=== PATIENT | male | born 1970 | race Caucasian/White ===

== ENCOUNTER → 2017-11-24 | Outpatient (CLI) | payer BC ==
[2017-11-24 16:36] LABS: Anion Gap 10 mmol/L; Blood Urea Nitrogen 17 mg/dL (9-20); Carbon Dioxide 27 mmol/L (22-30); Chloride 105 mmol/L (98-107); Potassium 4.4 mmol/L (3.5-5.1); Sodium 142 mmol/L (137-145)
[2017-11-25 02:29] LABS: Hemoglobin A1C 5.6 % (4.0-6.0)
== END | disposition home or self-care (01) ==
LOC: LABWHC1 15:43
PROVIDERS: ATTEND Family Medicine
DX: I10 Essential (primary) hypertension (principal); Z79.899 Other long term (current) drug therapy
CPT/HCPCS: 36415; 80051; 82565; 83036; 84443; 84520

== ENCOUNTER → 2018-09-17 | Outpatient (CLI) | payer BC | END | disposition home or self-care (01) | LOC: LABWHC1 16:25 | PROVIDERS: ATTEND Family Medicine | DX: Z51.81 Encounter for therapeutic drug level monitoring (principal); Z79.899 Other long term (current) drug therapy | CPT/HCPCS: 36415; 84403; 84443 ==

== ENCOUNTER → 2019-06-19 | Outpatient (CLI) | payer BC ==
[2019-06-19 10:49] LABS: HGB 16.7 gm/dL (13.0-17.5); MCH 31.7 pg (25.0-35.0); MCHC 34.2 g/dL (31.0-37.0); MCV 92.6 fL (80.0-100.0); Mean Platelet Volume 6.6; Platelet Count 275 k/uL (150-450); RBC 5.29 m/uL (4.30-5.90); RDW 12.2 % (11.5-15.5)
[2019-06-19 18:11] LABS: African American GFR (CKD) 92.2 (60.0-200.0); Albumin 4.5 g/dL (3.80-4.90); Albumin/Globulin Ratio 1.55 (1.60-3.17); Anion Gap 7.5 mmol/L (4.00-12.00); BUN/Creat Ratio 16.36 Ratio (12.00-20.00); Calcium 9.4 mg/dL (8.7-10.3); Carbon Dioxide 26.5 mmol/L (21.6-31.8); Chol/HDL Ratio 5.27; Globulin 2.9 g/dL (1.6-3.3); LDL Cholesterol,Calculated 111.6 mg/dL (0.0-131.0); Non-African American GFR(CKD) 79.5 (60.0-200.0); Total Bilirubin 0.6 mg/dL (0.3-1.2); Total Protein 7.4 g/dL (6.2-8.2); VLDL Calculation 46.4 mg/dL (5.00-40.00)
[2019-06-19 18:37] LABS: Hemoglobin A1C 6.3 % (4.0-6.0)
== END | disposition home or self-care (01) ==
LOC: LABWHC1 10:17
PROVIDERS: ATTEND Family Medicine
DX: Z00.00 Encounter for general adult medical examination without abnormal findings (principal); I10 Essential (primary) hypertension; B89 Unspecified parasitic disease
CPT/HCPCS: 36415; 80053; 80061; 83036; 84403; 84443; 85027

== ENCOUNTER → 2020-03-06 | Outpatient (CLI) | payer BC ==
[2020-03-06 16:44] LABS: HCT 48.9 % (39.0-53.0); HGB 16.7 gm/dL (13.0-17.5); MCH 32.6 pg (25.0-35.0); MCHC 34.2 g/dL (31.0-37.0); MCV 95.4 fL (80.0-100.0); Mean Platelet Volume 6.6; Platelet Count 254 k/uL (150-450); RBC 5.13 m/uL (4.30-5.90)
[2020-03-07 03:24] LABS: African American GFR (CKD) 102.7 (60.0-200.0); Albumin 4.4 g/dL (3.80-4.90); Albumin/Globulin Ratio 1.42 (1.60-3.17); Anion Gap 9.7 mmol/L (4.00-12.00); Calcium 9.6 mg/dL (8.7-10.3); Carbon Dioxide 23.3 mmol/L (21.6-31.8); Chol/HDL Ratio 5.62; Globulin 3.1 g/dL (1.6-3.3); LDL Cholesterol,Calculated 81.2 mg/dL (0.0-131.0); Non-African American GFR(CKD) 88.6 (60.0-200.0); Potassium 4.2 mmol/L (3.5-5.5); Total Bilirubin 0.3 mg/dL (0.2-1.2); Total Protein 7.5 g/dL (6.2-8.2); VLDL Calculation 75.8 mg/dL (5.00-40.00)
[2020-03-07 04:03] LABS: Hemoglobin A1C 5.8 % (4.0-6.0)
== END | disposition home or self-care (01) ==
LOC: LABWHC1 16:17
PROVIDERS: ATTEND Family Medicine
DX: I10 Essential (primary) hypertension (principal); E11.9 Type 2 diabetes mellitus without complications
CPT/HCPCS: 36415; 80053; 80061; 83036; 84403; 84443; 85027

== ENCOUNTER 2022-08-01 08:09 | Day surgery (SDC) | payer BC ==
[2022-07-26 15:06] VITALS: BMI 36.9
[~2022-08-01 08:09] MED LIST: LACTATED RINGERS 1,000 ML IV SCH; LIDOCAINE 1% (10MG/ML) FOR IV START INTRADERMA PRN
[2022-08-01 08:30] VITALS: TEMP 96
--- NOTE | 2022-08-01 09:12 | P.GSHP ---
History of Present Illness H&P Date: 08/01/22 Chief Complaint: Diarrhea This a 51-year-old male who's had complaints of diarrhea. Patient resents today for colonoscopy. Past Medical History Past Medical History: GERD/Reflux, Hypertension, Osteoarthritis (OA) Additional Past Medical History / Comment(s): occ vertigo History of Any Multi-Drug Resistant Organisms: None Reported Past Surgical History: Orthopedic Surgery Additional Past Surgical History / Comment(s): b/l arthroscopic knee surgery Past Anesthesia/Blood Transfusion Reactions: No Reported Reaction, Motion Sickness Past Psychological History: Anxiety Additional Psychological History / Comment(s): reports feeling over emotional at times Smoking Status: Former smoker Past Drug Use History: None Reported Additional Drug Use History / Comment(s): 1 ppd Medications and Allergies Home Medications Medication Instructions Recorded Confirmed Type FLUoxetine HCL [PROzac] 10 mg PO DAILY 07/26/22 08/01/22 History Ibuprofen [Motrin] 800 mg PO BID PRN 07/26/22 08/01/22 History Losartan Potassium 100 mg PO DAILY 07/26/22 08/01/22 History Sildenafil Citrate [Viagra] 25 mg PO DAILY PRN 07/26/22 08/01/22 History oxyCODONE-APAP 7.5-325MG [Percocet 1 tab PO BID PRN 07/26/22 08/01/22 History 7.5-325 mg] Allergies Allergy/AdvReac Type Severity Reaction Status Date / Time No Known Allergies Allergy Verified 08/01/22 08:34 Surgical - Exam Vital Signs Temp Pulse Resp BP Pulse Ox 96 F L 84 20 154/85 96 08/01/22 08:25 08/01/22 08:25 08/01/22 08:25 08/01/22 08:25 08/01/22 08:25 - General well developed, well nourished, no distress - Eyes PERRL - ENT normal pinna - Neck no masses - Respiratory normal expansion - Cardiovascular Rhythm: regular - Abdomen Abdomen: soft, non tender Assessment and Plan Assessment: Diarrhea. We'll perform colonoscopy
[2022-08-01] MEDS ORDERED: LIDOCAINE 2% INJ 20 MG/ML (2 ML VIAL) ONE (09:13)
[2022-08-01] MEDS ORDERED: PROPOFOL 10 MG/ML 20 ML VIAL IV ONE (09:13)
--- NOTE | 2022-08-01 09:28 | P.OP ---
Date of Procedure: 08/01/22 Preoperative Diagnosis: Diarrhea Postoperative Diagnosis: Mild diverticulosis Procedure(s) Performed: Colonoscopy Anesthesia: MAC Surgeon: Eleuterio Goldsmith Pathology: other (Sigmoid) Condition: stable Disposition: PACU Description of Procedure: The patient's placed on the endoscopy table in the lateral position. Received IV sedation. Digital rectal exam was performed. This revealed no ebonized. The flexible colonoscope was then placed patient anus and passed throughout the entire colon. The ileocecal valve visualized. The cecum, ascending and transverse colon appeared normal. In the descending; was mild diverticular changes. Scope a random biopsies sigmoid colon was performed. The scope was brought back the rectum this appeared normal. Scope withdrawn for the anus. There was no significant inflammatory changes seen in the colon.
[2022-08-01 09:34] VITALS: RESP 16
[2022-08-01 09:57] VITALS: BP 127/62; PULSE 68
== END 2022-08-01 10:03 | disposition home or self-care (01) ==
LOC: ORWHC2ENDO 08:09
PROVIDERS: ATTEND Surgery
DX: K57.30 Diverticulosis of large intestine without perforation or abscess without bleeding (principal); I10 Essential (primary) hypertension; M19.90 Unspecified osteoarthritis, unspecified site; K21.9 Gastro-esophageal reflux disease without esophagitis; E66.9 Obesity, unspecified; Z68.37 Body mass index [BMI] 37.0-37.9, adult; Z86.69 Personal history of other diseases of the nervous system and sense organs; Z98.890 Other specified postprocedural states; F41.9 Anxiety disorder, unspecified; Z87.891 Personal history of nicotine dependence; Z79.1 Long term (current) use of non-steroidal anti-inflammatories (NSAID); Z79.899 Other long term (current) drug therapy
CPT/HCPCS: 88305; 45380; J2704; J2001

== ENCOUNTER → 2022-08-01 | Outpatient (CLI) | payer BC ==
[2022-08-01 14:57] LABS: Basophils # (A) 0.04 X 10*3/uL (0.00-0.10); Basophils % (A) 0.9 %; Eosinophils # (A) 0.08 X 10*3/uL (0.04-0.35); Eosinophils % (A) 1.9 %; HGB 16.5 g/dL (13.0-17.0); Immature Grans, Automated 0.5 %; Lymphocytes # (A) 1.51 X 10*3/uL (0.90-5.00); Lymphocytes % (A) 35.7 %; MCH 32.7 pg (27.0-32.0); MCHC 34.4 g/dL (32.0-37.0); Mean Platelet Volume 9.8 fL (9.5-12.2); Monocytes # (A) 0.41 X 10*3/uL (0.20-1.00); Monocytes % (A) 9.7 %; NRBC Per 100 WBC 0 /100 WBCS (0.0-0.0); Neutrophils # (A) 2.17 X 10*3/uL (1.80-7.70); Neutrophils % (A) 51.3 %; Platelet Count 263 X 10*3/uL (140-440); RBC 5.05 X 10*6/uL (4.40-5.60); RDW 12.4 % (11.5-14.5); WBC 4.23 X 10*3/uL (4.50-10.00)
[2022-08-01 16:17] LABS: ALT 98 U/L (10-49); AST 50 U/L (14-35); African American GFR (CKD) 94.4 (60.0-200.0); Albumin 4.4 g/dL (3.8-4.9); Albumin/Globulin Ratio 1.45 (1.60-3.17); Alkaline Phosphatase 66 U/L (41-126); BUN/Creat Ratio 12.45 Ratio (12.00-20.00); Blood Urea Nitrogen 13.2 mg/dL (9.0-27.0); Calcium 9.6 mg/dL (8.7-10.3); Carbon Dioxide 29.7 mmol/L (20.0-27.5); Chloride 99 mmol/L (96-109); Chol/HDL Ratio 5.88 Ratio; Glucose 195 mg/dL (70-110); LDL Cholesterol,Calculated 119.6 mg/dL (0.0-131.0); Non-African American GFR(CKD) 81.4 (60.0-200.0); Potassium 4.3 mmol/L (3.5-5.5); Sodium 137 mmol/L (135-145); Total Protein 7.4 g/dL (6.2-8.2)
== END | disposition home or self-care (01) ==
LOC: LABWHC1 10:18
PROVIDERS: ATTEND Family Medicine
DX: Z00.00 Encounter for general adult medical examination without abnormal findings (principal); I10 Essential (primary) hypertension; Z79.899 Other long term (current) drug therapy
CPT/HCPCS: 36415; 80053; 80061; 83036; 84153; 84403; 84443; 85025

== ENCOUNTER → 2023-03-01 | Outpatient (CLI) | payer BC ==
[2023-03-01 13:47] LABS: HCT 46.7 % (39.6-50.0); HGB 15.8 d/dL (13.0-17.0); MCH 33.3 pg (27.0-32.0); MCHC 33.8 d/dL (32.0-37.0); MCV 98.5 FL (80.0-97.0); Mean Platelet Volume 9.2 FL (9.5-12.2); NRBC Per 100 WBC 0 X 10*3/uL (0.00-0.01); Platelet Count 256 X 10*3/uL (140-440); RBC 4.74 X 10*6/uL (4.40-5.60); RDW 12.7 % (11.5-14.5); WBC 4.09 X 10*3/uL (4.50-10.00)
[2023-03-01 14:11] LABS: ALT 75 U/L (10-49); AST 43 U/L (14-35); Albumin 4.2 d/dL (3.8-4.9); Albumin/Globulin Ratio 1.35 Ratio (1.60-3.17); Alkaline Phosphatase 65 U/L (41-126); BUN/Creat Ratio 13.45 Ratio (12.00-20.00); Blood Urea Nitrogen 14.8 mg/dL (9.0-27.0); Calcium 9.5 mg/dL (8.7-10.3); Carbon Dioxide 27.5 mmol/L (21.6-31.8); Chloride 99 mmol/L (96-109); Chol/HDL Ratio 4.14 Ratio; Globulin 3.1 d/dL (1.6-3.3); Glucose 185 mg/dL (70-110); LDL Cholesterol,Calculated 76.5 mg/dL (0.0-131.0); Potassium 4.1 mmol/L (3.5-5.5); Sodium 137 mmol/L (135-145); Total Bilirubin 0.4 mg/dL (0.3-1.2); Total Protein 7.3 d/dL (6.2-8.2)
== END | disposition home or self-care (01) ==
LOC: LABWHC1 08:43
PROVIDERS: ATTEND Family Medicine
DX: Z00.00 Encounter for general adult medical examination without abnormal findings (principal)
CPT/HCPCS: 36415; 80053; 80061; 82043; 82570; 83036; 84443; 85027

== ENCOUNTER → 2023-11-15 | Outpatient (CLI) | payer BC ==
[2023-11-15 12:39] LABS: Basophils # (A) 0.05 X 10*3/uL (0.00-0.10); Basophils % (A) 1.1 %; Eosinophils # (A) 0.13 X 10*3/uL (0.04-0.35); Eosinophils % (A) 2.9 %; HCT 44.6 % (39.6-50.0); HGB 15.7 g/dL (13.0-17.0); Lymphocytes # (A) 1.84 X 10*3/uL (0.90-5.00); Lymphocytes % (A) 40.4 %; MCH 32.2 pg (27.0-32.0); MCHC 35.2 g/dL (32.0-37.0); MCV 91.4 FL (80.0-97.0); Mean Platelet Volume 9.8 FL (9.5-12.2); Monocytes # (A) 0.42 X 10*3/uL (0.20-1.00); Monocytes % (A) 9.2 %; NRBC Per 100 WBC 0 X 10*3/uL (0.00-0.01); Neutrophils # (A) 2.11 X 10*3/uL (1.80-7.70); Neutrophils % (A) 46.2 %; Platelet Count 218 X 10*3/uL (140-440); RBC 4.88 X 10*6/uL (4.40-5.60); RDW 12.4 % (11.5-14.5); WBC 4.56 X 10*3/uL (4.50-10.00)
[2023-11-15 14:38] LABS: Microalbumin Creatinine Ratio <6 mg/g Cr (0-30)
[2023-11-15 15:15] LABS: ALT 75 U/L (10-49); AST 48 U/L (14-35); Albumin 4.2 g/dL (3.8-4.9); Alkaline Phosphatase 67 U/L (41-126); BUN/Creat Ratio 17.67 Ratio (12.00-20.00); Blood Urea Nitrogen 15.9 mg/dL (9.0-27.0); Carbon Dioxide 24.6 mmol/L (21.6-31.8); Chloride 98 mmol/L (96-109); Chol/HDL Ratio 4.27 Ratio; Glucose 224 mg/dL (70-110); LDL Cholesterol,Calculated 78.8 mg/dL (0.0-131.0); Potassium 3.6 mmol/L (3.5-5.5); Prostate Specific Antigen 0.62 ng/mL (0.000-3.500); Sodium 136 mmol/L (135-145); Total Bilirubin 0.5 mg/dL (0.3-1.2); Total Protein 7.2 g/dL (6.2-8.2)
== END | disposition home or self-care (01) ==
LOC: LABWHC1 07:34
PROVIDERS: ATTEND Family Medicine
DX: Z00.00 Encounter for general adult medical examination without abnormal findings (principal); E11.9 Type 2 diabetes mellitus without complications; I10 Essential (primary) hypertension; E78.49 Other hyperlipidemia
CPT/HCPCS: 36415; 80053; 80061; 82043; 82570; 83036; 84153; 84443; 85025

== ENCOUNTER 2024-08-05 11:10 | Inpatient (IN) | payer BC ==
[2024-08-05] MEDS ORDERED: NITROGLYCERIN SL TABS 0.4 MG TAB SUBLINGUAL PRN ×2 (11:24→11:34)
--- NOTE | 2024-08-05 11:30 | ED ---
General Adult HPI - General Chief complaint: Recheck/Abnormal Lab/Rx Stated complaint: Chest pain Time Seen by Provider: 08/05/24 11:12 Source: patient, RN/MD, RN notes reviewed Mode of arrival: wheelchair Limitations: no limitations - History of Present Illness Initial comments: Patient is a 53-year-old male present to the emergency department with concerns of chest discomfort. Symptoms have been occurring for the past several months. Patient specifically has discomfort with exertion and shoveling. No symptoms at this time. Patient did see cardiology and had stress test done today. Dr. Fierro called with concerns for abnormal stress test. He would like patient to be admitted with heparin and echo. - Related Data Home Medications Medication Instructions Recorded Confirmed FLUoxetine HCL [PROzac] 10 mg PO DAILY 07/26/22 08/01/22 Ibuprofen [Motrin] 800 mg PO BID PRN 07/26/22 08/01/22 Losartan Potassium 100 mg PO DAILY 07/26/22 08/01/22 Sildenafil Citrate [Viagra] 25 mg PO DAILY PRN 07/26/22 08/01/22 oxyCODONE-APAP 7.5-325MG [Percocet 1 tab PO BID PRN 07/26/22 08/01/22 7.5-325 mg] Allergies Allergy/AdvReac Type Severity Reaction Status Date / Time No Known Allergies Allergy Verified 08/05/24 11:14 Review of Systems ROS Statement: Those systems with pertinent positive or pertinent negative responses have been documented in the HPI. ROS Other: All systems not noted in ROS Statement are negative. Constitutional: Denies: fever Eyes: Denies: eye pain Cardiovascular: Reports: as per HPI, chest pain Gastrointestinal: Denies: abdominal pain Musculoskeletal: Denies: back pain Past Medical History Past Medical History: GERD/Reflux, Hypertension, Osteoarthritis (OA) Additional Past Medical History / Comment(s): occ vertigo History of Any Multi-Drug Resistant Organisms: None Reported Past Surgical History: Orthopedic Surgery Additional Past Surgical History / Comment(s): b/l arthroscopic knee surgery Past Anesthesia/Blood Transfusion Reactions: No Reported Reaction, Motion Sickness Past Psychological History: Anxiety Smoking Status: Former smoker Past Alcohol Use History: Occasional Past Drug Use History: None Reported General Exam Limitations: no limitations General appearance: alert, in no apparent distress Head exam: Present: normocephalic Eye exam: Present: normal appearance Neck exam: Present: normal inspection Respiratory exam: Present: normal lung sounds bilaterally. Absent: chest wall tenderness Cardiovascular Exam: Present: regular rate, normal rhythm, normal heart sounds Expanded Peripheral pulses: 2+: Radial (R), Radial (L), Posterior Tibialis (R), Posterior Tibialis (L) GI/Abdominal exam: Present: soft. Absent: tenderness, pulsatile mass Extremities exam: Present: normal inspection. Absent: pedal edema, calf tenderness Neurological exam: Present: alert Psychiatric exam: Present: normal affect, normal mood Skin exam: Present: normal color Course Vital Signs 08/05/24 11:12 Temperature 98.8 F Pulse Rate 84 Respiratory 18 Rate Blood Pressure 131/87 O2 Sat by Pulse 97 Oximetry EKG Findings - EKG Results: EKG: interpreted by ERMD (Inferior T wave inversion), sinus rhythm, normal axis, normal QRS Medical Decision Making - Medical Decision Making Was pt. sent in by a medical professional or institution (, PA, EPIDEMIOLOGY INVESTIGATOR, urgent care, hospital, or [facility]...) When possible be specific @ -Patient was sent from stress lab Did you speak to anyone other than the patient for history (EMS, parent, family, police, friend...)? What history was obtained from this source @ -See above, case was discussed with Dr. Fierro Did you review nursing and triage notes (agree or disagree)? Why? @ -I reviewed and agree with nursing and triage notes Were old charts reviewed (outside hosp., previous admission, EMS record, old EKG, old radiological studies, urgent care reports/EKG's, [facility] records)? Report findings @ -Results of stress test discussed with Dr. Fierro Differential Diagnosis (chest pain, altered mental status, abdominal pain women, abdominal pain men, vaginal bleeding, weakness, fever, dyspnea, syncope, hea dache, dizziness, GI bleed, back pain, seizure, CVA, palpatations, mental health, musculoskeletal)? @ -Differential Chest Pain: Stable Angina, Unstable Angina, STEMI, NSTEMI Aortic Dissection, Pneumothorax, Musculoskeletal, Esophageal Spasm GERD, Cholecystitis, Pancreatitis, Zoster, this is not meant to be an all-inclusive list. EKG interpreted by me (3pts min.). @ -As above X-rays interpreted by me (1pt min.). @ -None done CT interpreted by me (1pt min.). @ -None done U/S interpreted by me (1pt. min.). @ -None done What testing was considered but not performed or refused? (CT, X-rays, U/S, labs)? Why? @ -None What meds were considered but not given or refused? Why? @ -None Did you discuss the management of the patient with other professionals (professionals i.e. DrLino, PA, EPIDEMIOLOGY INVESTIGATOR, lab, RT, psych nurse, social work therapist, brand director, teacher, navy airspace officer, case work aide)? Give summary @ -Case also discussed with Dr. Waller who will admit his patient Was smoking cessation discussed for >3mins.? @ -No Was critical care preformed (if so, how long)? @ -31 minutes critical care time Were there social determinants of health that impacted care today? How? (Homelessness, low income, unemployed, alcoholism, drug addiction, transportation, low edu. Level, literacy, decrease access to med. care, fdc, rehab)? @ -No Was there de-escalation of care discussed even if they declined (Discuss DNR or withdrawal of care, Hospice)? DNR status @ -No What co-morbidities impacted this encounter? (DM, HTN, Smoking, COPD, CAD, Cancer, CVA, ARF, Chemo, Hep., AIDS, mental health diagnosis, sleep apnea, morbid obesity)? @ -None Was patient admitted / discharged? Hospital course, mention meds given and route, prescriptions, significant lab abnormalities, going to OR and other pertinent info. @ -Patient presents with exertional chest pain for several months. Abnormal stress test. Patient will be admitted with cardiac consult. Patient is updated on plan. Admission orders written. Undiagnosed new problem with uncertain prognosis? @ -No Drug Therapy requiring intensive monitoring for toxicity (Heparin, Nitro, Insulin, Cardizem)? @ -Heparin drip Were any procedures done? @ -No Diagnosis/symptom? @ -Unstable angina Acute, or Chronic, or Acute on Chronic? @ -Acute Uncomplicated (without systemic symptoms) or Complicated (systemic symptoms)? @ -Default Side effects of treatment? @ -No Exacerbation, Progression, or Severe Exacerbation? @ -No Poses a threat to life or bodily function? How? (Chest pain, [place], GA, pneumonia, PE, COPD, DKA, ARF, appy, cholecystitis, CVA, Diverticulitis, Homicidal, Suicidal, threat to staff... and all critical care pts) @ -Threat to cardiac function Disposition Clinical Impression: Unstable angina Disposition: ADMITTED IP TO THIS HOSP Is patient prescribed a controlled substance at d/c from ED?: No Referrals: Josue Waller MD [Primary Care Provider] - 1-2 days Decision Date: 08/05/24 Decision Time: 11:27
[2024-08-05] MEDS ORDERED: ALPRAZolam 0.25 MG TAB PO PRN (11:34)
[2024-08-05] MEDS ORDERED: ALPRAZolam 0.5 MG TAB PO PRN (11:34)
[2024-08-05] MEDS: ASPIRIN 81 MG PO STA (11:52)
[2024-08-05] MEDS: ISOSORBIDE MONONITRATE ER 30 MG TAB.ER.24H PO SCH (11:53)
[2024-08-05] MEDS: METOPROLOL TARTRATE 25 MG TAB PO SCH (11:53)
--- NOTE | 2024-08-05 11:54 | XR ---
EXAMINATION TYPE: XR chest 2V DATE OF EXAM: 08/05/2024 11:38 AM COMPARISON: None CLINICAL INDICATION: Male, 53 years old with history of Chest Pain; [facility] TECHNIQUE: XR chest 2V Frontal and lateral views of the chest. FINDINGS: Lungs/Pleura: There is no evidence of pleural effusion, focal consolidation, or pneumothorax. Pulmonary vascularity: Unremarkable. Heart/mediastinum: Cardiomediastinal silhouette is unremarkable. Musculoskeletal: No acute osseous pathology. Other findings: None IMPRESSION: No acute cardiopulmonary disease/process. [facility], , 08/05/2024 11:52 AM
--- NOTE | 2024-08-05 11:56 | P.CRDCN ---
History of Present Illness Consult date: 08/05/24 Reason for Consult (text): Unstable angina History of present illness: This is a 53-year-old male with past medical history of hypertension, hyperlipidemia, diabetes mellitus type 2. Patient was scheduled for outpatient exercise stress test because he had chest pain while he was shoveling snow. He also was scheduled for an outpatient echocardiogram. Patient performed the exercise stress test and went into SVT rhythm at [address] depression that persisted. Patient did not have chest pain during the test. Dr. ROOSEVELT Fierro reviewed the results with the patient and recommended cardiac catheterization. Patient was taken down to the emergency center to be admitted. Laboratory studies are pending. -EKG: Sinus rhythm with ST depression -Chest x-ray: No acute cardiopulmonary disease. -Home cardiac medications: Losartan, metoprolol, atorvastatin -Echocardiogram performed 08/05/2024 reveals normal LV size and systolic function. No significant abnormality on Doppler exam. No pericardial effusion. Review Of Systems: At the time of my exam: CONSTITUTIONAL: Denies fever or chills. HEENT: Denies blurred vision, vision changes, or eye pain. Denies hemoptysis CARDIOVASCULAR: Denies chest pain. Denies orthopnea. Denies PND. Denies palpitations RESPIRATORY: Denies shortness of breath. GASTROINTESTINAL: Denies abdominal pain. Denies nausea or vomiting. HEMATOLOGIC: Denies bleeding disorders. GENITOURINARY: Denies any blood in urine. SKIN: Denies puritis. Denies rash. Physical examination: Gen: This is a 53-year-old male in no acute distress. VS: reviewed HEENT: Head is atraumatic, normocephalic. Pupils equal, round. Sclerae is anicteric. NECK: Supple. No JVD. LUNGS: Clear to auscultation. No wheezes or rhonchi. No intercostal retractions. HEART: Regular rate and rhythm. No murmur. ABDOMEN: Soft No tenderness. EXTREMITIES: No pedal edema. No calf tenderness. NEUROLOGICAL: Patient is awake, alert and oriented x3. Assessment: Unstable angina Abnormal stress test Hypertension Hyperlipidemia Diabetes mellitus type 2 Plan: Patient started on aspirin 81 mg daily, atorvastatin 40 mg at bedtime, Imdur 30 mg daily, Lopressor 25 mg 3 times daily Patient started on heparin drip and discontinue at 6 AM on 3/21 Patient is scheduled for cardiac catheterization tomorrow morning with Dr. ROOSEVELT Fierro Further recommendations to follow based upon clinical course Thank you kindly for this consultation. Nurse practitioner note has been reviewed, I agree with documented findings and plan of care. Patient was seen and examined. Past Medical History Past Medical History: GERD/Reflux, Hypertension, Osteoarthritis (OA) Additional Past Medical History / Comment(s): occ vertigo History of Any Multi-Drug Resistant Organisms: None Reported Past Surgical History: Orthopedic Surgery Additional Past Surgical History / Comment(s): b/l arthroscopic knee surgery Past Anesthesia/Blood Transfusion Reactions: No Reported Reaction, Motion Sickness Past Psychological History: Anxiety Smoking Status: Former smoker Past Alcohol Use History: Occasional Past Drug Use History: None Reported Medications and Allergies Home Medications Medication Instructions Recorded Confirmed Type FLUoxetine HCL [PROzac] 10 mg PO DAILY 07/26/22 08/01/22 History Ibuprofen [Motrin] 800 mg PO BID PRN 07/26/22 08/01/22 History Losartan Potassium 100 mg PO DAILY 07/26/22 08/01/22 History Sildenafil Citrate [Viagra] 25 mg PO DAILY PRN 07/26/22 08/01/22 History oxyCODONE-APAP 7.5-325MG [Percocet 1 tab PO BID PRN 07/26/22 08/01/22 History 7.5-325 mg] Allergies Allergy/AdvReac Type Severity Reaction Status Date / Time No Known Allergies Allergy Verified 08/05/24 11:14 Physical Exam Vitals: Vital Signs Temp Pulse Resp BP Pulse Ox 08/05/24 11:12 98.8 F 84 18 131/87 97 Intake and Output 08/04/24 08/05/24 08/05/24 22:59 06:59 14:59 Other: Weight 112.491 kg Results Current Medications Generic Name Dose Route Start Last Admin Trade Name Freq PRN Reason Stop Dose Admin Aspirin 325 mg 08/06/24 09:00 Aspirin 325 Mg Tab PO DAILY [facility] Heparin Sodium/Sodium Chloride 250 mls @ 13.499 mls/hr 08/05/24 11:30 25,000 unit/ Sodium Chloride IV .[id number] [facility] Protocol 12 UNITS/KG/HR Nitroglycerin 0.4 mg 08/05/24 11:24 Nitroglycerin Sl Tabs 0.4 Mg Tab SUBLINGUAL Q5M PRN Chest Pain Intake and Output 08/04/24 08/05/24 08/05/24 22:59 06:59 14:59 Other: Weight 112.491 kg Patient Weight 08/06/24 06:59 Weight 112.491 kg
[2024-08-05] MEDS: HEPARIN SODIUM 1,000 UN/ML (10ML VL) IV ONE (11:59)
[2024-08-05] MEDS: HEPARIN SOD,PORK IN 0.45% NACL 25,000 UNIT in 0.45% NACL 1 250ML.BAG IV SCH (11:59)
[2024-08-05 12:00] LABS: Glucose,Whole Blood 124 mg/dL (70-110)
[2024-08-05 12:04] LABS: ALT 80 U/L (4-49); AST 58 U/L (17-59); African American GFR (CKD) >90 (>60 ml/min/1.73 sqM); Albumin 5.1 g/dL (3.5-5.0); Alkaline Phosphatase 71 U/L (38-126); Anion Gap 12 mmol/L; Blood Urea Nitrogen 15 mg/dL (9-20); Calcium 10.2 mg/dL (8.4-10.2); Carbon Dioxide 29 mmol/L (22-30); Chloride 97 mmol/L (98-107); Glucose 133 mg/dL (74-99); Non-African American GFR(CKD) >90 (>60 ml/min/1.73 sqM); Potassium 3.7 mmol/L (3.5-5.1); Sodium 138 mmol/L (137-145); Total Bilirubin 1.2 mg/dL (0.2-1.3)
[2024-08-05 12:08] LABS: INR 1.1 (<1.2); Prothrombin Time 11.5 sec (10.0-12.5)
[2024-08-05 12:20] LABS: Basophils # (A) 0.1 k/uL (0-0.2); Basophils % (A) 1 %; Eosinophils # (A) 0.1 k/uL (0-0.7); Eosinophils % (A) 2 %; HCT 50.1 % (39.0-53.0); HGB 17.8 gm/dL (13.0-17.5); Lymphocytes # (A) 1.8 k/uL (1.0-4.8); Lymphocytes % (A) 28 %; MCH 32.6 pg (25.0-35.0); MCHC 35.6 g/dL (31.0-37.0); MCV 91.5 fL (80.0-100.0); Monocytes # (A) 0.5 k/uL (0-1.0); Monocytes % (A) 8 %; Neutrophils # (A) 3.8 k/uL (1.3-7.7); Neutrophils % (A) 60 %; Platelet Count 191 k/uL (150-450); RBC 5.48 m/uL (4.30-5.90); RDW 12.5 % (11.5-15.5); WBC 6.4 k/uL (3.8-10.6)
[2024-08-05] MEDS: oxyCODONE-APAP 7.5-325MG 1 EACH TAB PO PRN (13:29)
[2024-08-05 18:31] LABS: Partial Thromboplastin Time 33.9 sec (22.0-30.0)
[2024-08-05] MEDS: HEPARIN SODIUM 1,000 UN/ML (10ML VL) IV PRN (19:31)
[2024-08-05] MEDS: NON FORMULARY DRUG (Dulaglutide [Trulicity] 3 MG/0.5 ML Each) SQ SCH (20:46)
[2024-08-05] MEDS: oxyCODONE-APAP 7.5-325MG 1 EACH TAB PO SCH (20:46)
[2024-08-05] MEDS: METOPROLOL SUCCINATE (ER) 25 MG TAB.ER.24H PO SCH (20:47)
[2024-08-05] MEDS: FAMOTIDINE 20 MG TAB PO SCH (20:47)
[2024-08-05] MEDS ORDERED: ATORVASTATIN 40 MG TAB PO SCH (21:00)
--- NOTE | 2024-08-06 00:55 | HP ---
HISTORY AND PHYSICAL HISTORY OF PRESENT ILLNESS: He was sent here after having a stress test today, which showed possibly SVT heart cath. recommend heart catheterization, where admit him, start him on his home medicines. EKG shows sinus rhythm, some ST changes. MEDICATIONS: 1. Losartan. 2. Metoprolol. 3. Atorvastatin. IMAGING DATA: Echo showed good ejection fraction 55%. REVIEW OF SYSTEMS: Exertional shortness of breath, chest pains, otherwise negative 14-point review of system. PHYSICAL EXAMINATION: GENERAL: White male, in no acute distress. VITAL SIGNS: Reviewed. CARDIOVASCULAR: S1 and S2. HEAD: Normocephalic, atraumatic. Pupils are equal, round, and reactive. LUNGS: Decreased breath sounds. ABDOMEN: Distended. EXTREMITIES: No cyanosis, clubbing, or edema. NEUROLOGIC: Cranial nerves intact. ASSESSMENT: Atypical chest pain with abnormal stress test. First troponin is negative. Hypertension, dyslipidemia, and diabetes mellitus. Continue on aspirin and atorvastatin. Heart catheterization in the morning. PROGNOSIS: Guarded. Please see further orders. MMODL / IJN: [id number] /
[2024-08-06] MEDS ORDERED: HEPARIN SODIUM,PORCINE 10,000 UNIT in SODIUM CHLORIDE 0.9% 1,000 ML IRRIGATION PRN (07:00)
[2024-08-06] MEDS ORDERED: HEPARIN SODIUM,PORCINE (1 ML) 2,500 UNIT in SODIUM CHLORIDE 0.9% 250 ML IRRIGATION PRN (07:00)
[2024-08-06 08:21] LABS: Chol/HDL Ratio 3.68 Ratio; LDL Cholesterol,Calculated 84.4 mg/dL (0.0-131.0); VLDL Calculation 18.34 mg/dL (5.00-40.00)
[2024-08-06] MEDS: ATORVASTATIN 20 MG TAB PO SCH (08:27)
[2024-08-06] MEDS ORDERED: ASPIRIN 325 MG TAB PO SCH (09:00)
[2024-08-06] MEDS: ASPIRIN 81 MG PO SCH (09:04)
[2024-08-06] MEDS: ATORVASTATIN 80 MG TAB PO ONE (09:05)
[2024-08-06] MEDS: LOSARTAN-HCTZ 50-12.5 MG 1 EACH TAB PO SCH (10:06)
[2024-08-06] MEDS: FLUoxetine HCL 10 MG CAP PO SCH (10:07)
[2024-08-06] MEDS: SODIUM CHLORIDE 0.9% 1,000 ML IV ONE ×2 (10:25→11:47)
[2024-08-06] MEDS: MIDAZOLAM 2 MG/2 ML VIAL IVP ONE (10:47)
[2024-08-06] MEDS: LIDOCAINE 1% INJ 10MG/ML (20 ML MDV) SQ ONE (10:48)
[2024-08-06] MEDS: HEPARIN SODIUM,PORCINE 10,000 UNIT in SODIUM CHLORIDE 0.9% 1,000 ML IRRIGATION ONE (10:49)
[2024-08-06] MEDS: HEPARIN SODIUM,PORCINE (1 ML) 2,500 UNIT in SODIUM CHLORIDE 0.9% 250 ML IRRIGATION ONE (10:49)
[2024-08-06] MEDS: VERAPAMIL SYRINGE (5 MG/10 ML) INTRAARTER ONE (10:55)
[2024-08-06] MEDS: HEPARIN SODIUM 1,000 UN/ML (10ML VL) IV ONE (10:58)
[2024-08-06] MEDS: IOPAMIDOL-300 100ML BTL INJ ONE (11:09)
[2024-08-06] MEDS: TICAGRELOR 90 MG TAB PO ONE (11:18)
[2024-08-06] MEDS: IOPAMIDOL-370 100ML BTL INJ ONE ×2 (11:44→11:57)
[2024-08-06] MEDS: NITROGLYCERIN 1000MCG/10ML SYRINGE INTRACORON ONE (11:47)
--- NOTE | 2024-08-06 12:24 | P.EPCON ---
Electrophysiology Consult - EP Consult Electrophysiology Consult: Patient evaluated in follow-up this morning. Seen initially by Dr. ROOSEVELT Fierro Had chest discomfort while shoveling snow Scheduled for a stress test Stress test was reviewed Downsloping ST depressions to his peak exercise Followed by PMVT for 5-6 beats This induced SVT, long RP tachycardia with RVR ST depressions noted during recovery Patient is diabetic hypertensive Coronary angiography revealed significant left circumflex disease status post stenting by Dr. Fierro He has nonobstructive CAD in the body of the left circumflex as well as in the LAD Outpatient stress test to evaluate for ischemia in that territory Thereafter antiarrhythmic management of SVT to follow Check TSH
[2024-08-06] MEDS: LOSARTAN 50 MG TAB PO SCH (19:38)
[2024-08-06] MEDS: TICAGRELOR 90 MG TAB PO SCH (19:38)
[2024-08-06] MEDS: ATORVASTATIN 80 MG TAB PO SCH (19:39)
[2024-08-06] MEDS: SODIUM CHLORIDE 0.9% 1,000 ML IV SCH (19:43)
--- NOTE | 2024-08-06 20:46 | CT ---
EXAMINATION TYPE: CT chest wo con CT DLP: 708.5 mGycm, Automated exposure control for dose reduction was used. DATE OF EXAM: 08/06/2024 8:34 PM COMPARISON: Chest radiograph 08/05/2024. CLINICAL INDICATION:Male, 53 years old with history of interstitial disease; PHH, Interstitial lung d isease. TECHNIQUE: Multiple axial images were obtained through the chest without IV contrast. Lack of IV or o ral contrast limits evaluation of solid and hollow organ viscera. . Coronal and sagittal reformats re viewed. FINDINGS: LUNGS/ PLEURA: No pleural effusion, pneumothorax, or focal consolidation. No suspicious pulmonary nod ule or mass. No evidence of honeycombing or bronchiectasis. No evidence for interstitial lung disease . AIRWAY: Patent and unremarkable.. HEART: Size within normal limits.No pericardial effusion. Mild coronary artery calcifications present . MEDIASTINUM: No gross evidence of adenopathy. VASCULATURE: No aortic aneurysm. MUSCULOSKELETAL: No acute osseous abnormalities SOFT TISSUES/LYMPH NODES: Unremarkable. LOWER NECK: No significant findings. UPPER ABDOMEN: Hyperdense material within both renal collecting systems suggesting renal calculi vers us prior contrast ministration. IMPRESSION: No acute thoracic process. No evidence for interstitial lung disease. [facility], , 08/06/2024 8:43 PM
[2024-08-06 22:36] VITALS: TEMP 98.8
--- NOTE | 2024-08-07 01:24 | CC ---
CARDIAC CATHETERIZATION REPORT PROCEDURES: 1. Left heart catheterization and coronary angiography. 2. Adjunctive intravascular ultrasound of circumflex coronary artery. 3. PTCA and stenting with 2 drug-eluting stents of proximal/ostial circumflex coronary artery. PERFORMED BY: Dr. Hillary Fierro. ANESTHESIA: Moderate conscious sedation time was 49 minutes. The patient was administered Versed. Oxygen saturation, hemodynamics, and EKG were monitored closely. CLINICAL INFORMATION: Mr. Pj Sanchez is a 53-year-old gentleman with diabetes, hypertension, and hyperlipidemia, who had some discomfort in the chest while shoveling snow and came for a stress test yesterday. He walked for a little over 7 minutes, developed SVT and also a short run of ventricular tachycardia and demonstrated significant ST-segment depression without chest pain. He was therefore kept in the hospital on heparin drip. Troponins were negative. Advised coronary angiogram after due discussion regarding risks, benefits, and options. PROCEDURE NOTE: Under local anesthesia and aseptic precautions with the help of ultrasound, I gained access into the right radial artery, placed a 6-Czech introducer. Using JR4 and JL3.5 catheters, I performed coronary angiography and the same right catheter was used to check LV pressures. I noted that the proximal circumflex had a 95% stenosis at the takeoff of a left atrial circumflex branch. Beyond that, the vessel was a fairly decent caliber and distribution had minor irregularities and moderate disease up to 35% to 45% throughout. He was advised intervention that was performed in the same setting. Following the intervention, the sheath was taken out and TR band applied as per protocol with good saturation of fingers of the right hand of about 96%. He was sent to the room in a stable condition. Results were discussed with the patient and . He will be on dual antiplatelet therapy with Brilinta and aspirin uninterrupted for 1 year. The patient received about 7000 units of heparin and ACT was over 300 and then a repeat ACT at the end of the procedure was about 240. The procedure was performed uneventfully without any complications. CARDIAC CATHETERIZATION FINDINGS: The left ventricular end-diastolic pressure was about 6 to 7 mmHg without any gradient across aortic valve. CORONARY ANGIOGRAPHY FINDINGS: Right coronary artery: Dominant vessel has mild diffuse disease. There is a good- sized conus branch. In the midportion, there is a 40% to 45% narrowing. In the distal portion, there is a 40% narrowing. It gives off a PDA mostly. PLV is small. Moderate disease noted in the RCA dominant vessel. Left main coronary artery: Very short vessel. No significant disease. Bifurcates into LAD and circumflex. Left anterior descending coronary artery: Fair caliber, fair distribution vessel has about a 40% lesion in the mid and distal 1/3, multiple irregularities, gives off septal and diagonal branches. No critical disease. Moderate disease noted in LAD. Noncritical. Left posterior circumflex coronary artery: Nondominant vessel. Good caliber and distribution, proximally has a 60% to 70% narrowing as it comes off from the left main and then there is a 95% stenosis at the left atrial circumflex branch and then continues, distally gives off 2 or 3 branches supplies a sizable amount of myocardium. Proximal circumflex therefore has a 95% stenosis. LV-gram was not performed. FINAL IMPRESSION: This patient has a normal filling pressures. No gradient. Right-dominant system with moderate 35% to 45% stenosis in multiple areas in RCA. He has short left main. No significant disease. LAD has also 35% to 45% multiple areas of narrowing, noncritical moderate disease. The proximal and circumflex has a 95% stenosis. Multiple areas of irregularities noted throughout the circumflex system. RECOMMENDATIONS: I recommended PCI of circumflex and perform this in the same setting. PCI PROCEDURE DETAILS: I used a CLS3.5 guide catheter to cannulate the left coronary artery and a run-through wire to cross the lesion in the circumflex and kept it distally. A 2.5 caliber NC Trek balloon was used to pre-dilate the lesion. I then performed intravascular ultrasound and noted that the competitive diameter was almost 2.9 mm. I then deployed a 3.0 caliber 12 mm stent distally and a 3.0 caliber 8 mm stent proximally almost at the ostium of circumflex. Excellent angiographic result was achieved. I then performed intravascular ultrasound and noted that the stent was fully expanded, but the maximal diameter was only 2.7. I then advanced a 3.25 caliber 15 mm long NC Trek balloon and dilated the entire stented segment at 14 atmospheres. Excellent angiographic result was achieved. There was excellent stent expansion with good apposition. Excellent result was achieved. The patient tolerated procedure well. The sheath was taken out and a TR band applied with good saturation of the fingers and he was sent to the room in stable condition. Results were discussed with the patient and family. This procedure was performed on 08/06/2024. RONALDO / AGUUST: [id number] /
--- NOTE | 2024-08-07 03:09 | PN ---
PROGRESS NOTE SUBJECTIVE: A 53-year-old white male, while shoveling snow had chest pain, came to the hospital. He had a stress test showed SVT. He has ischemia and was sent to the heart laboratory mechanical technician, put circumflex stent in. Echo was reviewed. Prognosis guarded. he says he is not going to give up shoveling snow or shoveling corn. PHYSICAL EXAMINATION: VITAL SIGNS: Stable. Afebrile. GENERAL: He is lying comfortably in bed. Discussed the case with his , status post CABG. LUNGS: Clear. CARDIOVASCULAR: S1 and S2. ENDOCRINE: BMI is over 30. Status post PTCA, coronary artery disease, family history of heart disease, hypertension, and diabetes. Continue current treatment. PROGNOSIS: Guarded. Ambulate as tolerated. Possible discharge home in the morning. MMODL / IJN: [id number] /
[2024-08-07 06:57] LABS: ALT 60 U/L (4-49); AST 39 U/L (17-59); African American GFR (CKD) >90 (>60 ml/min/1.73 sqM); Albumin 3.9 g/dL (3.5-5.0); Alkaline Phosphatase 53 U/L (38-126); Anion Gap 8 mmol/L; Blood Urea Nitrogen 12 mg/dL (9-20); Calcium 8.9 mg/dL (8.4-10.2); Carbon Dioxide 29 mmol/L (22-30); Chloride 102 mmol/L (98-107); Glucose 129 mg/dL (74-99); Non-African American GFR(CKD) 83 (>60 ml/min/1.73 sqM); Potassium 3.7 mmol/L (3.5-5.1); Sodium 139 mmol/L (137-145); Total Bilirubin 0.9 mg/dL (0.2-1.3)
[2024-08-07 07:14] LABS: Basophils % (A) 0 %; Eosinophils # (A) 0.1 k/uL (0-0.7); Eosinophils % (A) 2 %; HCT 42.6 % (39.0-53.0); HGB 14.8 gm/dL (13.0-17.5); Lymphocytes # (A) 1.7 k/uL (1.0-4.8); Lymphocytes % (A) 27 %; MCH 32.4 pg (25.0-35.0); MCHC 34.8 g/dL (31.0-37.0); MCV 93.1 fL (80.0-100.0); Mean Platelet Volume 6.8; Monocytes # (A) 0.4 k/uL (0-1.0); Monocytes % (A) 7 %; Neutrophils # (A) 3.8 k/uL (1.3-7.7); Neutrophils % (A) 61 %; Platelet Count 211 k/uL (150-450); RBC 4.58 m/uL (4.30-5.90); RDW 12.6 % (11.5-15.5); WBC 6.2 k/uL (3.8-10.6)
[2024-08-07] MEDS: TIOTROPIUM 2.5 MCG INHALER INHALATION SCH (08:20)
[2024-08-07 08:26] VITALS: BP 129/71; PULSE 84; RESP 18
--- NOTE | 2024-08-07 13:35 | P.PN ---
Subjective Progress Note Date: 08/07/24 Patient is a 53-year-old male who was undergoing stress testing when he had episode of ventricular tachycardia. Patient was then admitted and evaluated by cardiology. He underwent coronary angiogram where he was found to have 35 to 40% lesion in the mid RCA, 35 to 45% in the LAD, and 95% stenosis of the proximal circumflex, which was subsequently stented. Patient interviewed and examined resting comfortably in bed. Patient did well overnight and denies any current chest pain or pressure. GENERAL: Well-appearing, well-nourished and in no acute distress. NECK: Supple without JVD or thyromegaly. LUNGS: Breath sounds clear to auscultation bilaterally. Respiration equal and unlabored. No wheezes, rales or rhonchi. HEART: Regular rate and rhythm without murmurs, rubs or gallops. S1 and S2 heard. EXTREMITIES: Normal range of motion, no edema. No clubbing or cyanosis. Peripheral pulses intact and strong. Site is healed. TELEMETRY: This rhythm overnight LABS: BC 6.2, hemoglobin 14.8, hematocrit 42.6, platelet 211, sodium 139, potassium 3.7, BUN 12, creatinine 1.04, hemoglobin A1c 6.7, AST 39, ALT 60, TSH 2.59 IMPRESSION: Abnormal stress testing Coronary artery disease, multi-vessel Status post stenting of proximal/ostial circumflex Polymorphic ventricular tachycardia Supraventricular tachycardia diabetes mellitus PLAN: Continue dual antiplatelet therapy Continue antihypertensive regimen Patient may be discharged for outpatient follow-up with Dr. Parsons in 1 to 2 weeks I am dictating on behalf of Dr Eliceo Parsons's history/physical and assessment/plan. Objective - Vital Signs Vital signs: Vital Signs Temp 98.8 F 08/06/24 20:00 Pulse 84 08/07/24 08:00 Resp 18 08/07/24 08:00 BP 129/71 08/07/24 08:00 Pulse Ox 99 08/07/24 08:00 FiO2 Intake & Output 08/06/24 08/07/24 08/07/24 18:59 06:59 18:59 Intake Total 2014 Balance 2014 Weight 112.491 kg 112.3 kg Intake: IV 1055 Oral 960 Other: # Voids 1 1 - Labs CBC & Chem 7: 08/07/24 06:03 08/07/24 06:03 Labs: Abnormal Lab Results - Last 24 Hours (Table) 08/07/24 08/07/24 Range/Units 06:03 06:03 Glucose 129 H (74-99) mg/dL Hemoglobin A1c 6.7 H (<=6.0) % ALT 60 H (4-49) U/L
== END 2024-08-07 15:36 | disposition home or self-care (01) | DRG 322 ==
LOC: CATHCVL 11:10 → 3SCARD 11:25
PROVIDERS: ADMIT Family Medicine; ATTEND Family Medicine
PROC: B240ZZ3 Ultrasonography of Single Coronary Artery, Intravascular (ICD-10-PCS; principal; 2024-08-06 11:30)
PROC: 027035Z Dilation of Coronary Artery, One Artery with Two Drug-eluting Intraluminal Devices, Percutaneous Approach (ICD-10-PCS; principal; 2024-08-06 11:30)
PROC: B2111ZZ Fluoroscopy of Multiple Coronary Arteries using Low Osmolar Contrast (ICD-10-PCS; principal; 2024-08-06 11:30)
PROC: 4A023N7 Measurement of Cardiac Sampling and Pressure, Left Heart, Percutaneous Approach (ICD-10-PCS; principal; 2024-08-06 11:30)
PROC: 4A12XM4 Monitoring of Cardiac Stress, External Approach (ICD-10-PCS; 2024-08-06 11:30)
DX: I25.110 Atherosclerotic heart disease of native coronary artery with unstable angina pectoris (principal); I47.10 Supraventricular tachycardia, unspecified; E11.9 Type 2 diabetes mellitus without complications; I10 Essential (primary) hypertension; K21.9 Gastro-esophageal reflux disease without esophagitis; M19.90 Unspecified osteoarthritis, unspecified site; F41.9 Anxiety disorder, unspecified; E78.5 Hyperlipidemia, unspecified; Z87.891 Personal history of nicotine dependence; Z79.899 Other long term (current) drug therapy; Z82.49 Family history of ischemic heart disease and other diseases of the circulatory system
CPT/HCPCS: 36415; 71046; 71250; 80053; 80061; 83036; 83735; 84443; 84484; 85025; 85379; 85610; 85730; 92978; 93005; 93458; 96365; 96366; 99291

== ENCOUNTER → 2024-08-05 | Outpatient (CLI) | payer BC ==
--- NOTE | 2024-08-05 11:26 | CA ---
Transthoracic Echo Report Name: Pj Sanchez Age: 53 Gender: M : 1970 Exam Date: 08/05/2024 08:41 Exam Location: [facility] Ht (in): 71 Wt (lb): 247 Ordering Physician: Josue Waller MD Attending/Referring Phys: Er Registrar Kassie Wayne RDCS Procedure CPT: Indications: R07.9 CHEST PAIN Cardiac Hx: Technical Quality: Fair Contrast 1: Total Dose (mL): Contrast 2: Total Dose (mL): MEASUREMENTS (Male / Female) Normal Values 2D ECHO LV Diastolic Diameter PLAX 4.0 cm 4.2 - 5.9 / 3.9 - 5.3 cm LV Systolic Diameter PLAX 2.6 cm IVS Diastolic Thickness 1.0 cm 0.6 - 1.0 / 0.6 - 0.9 cm LVPW Diastolic Thickness 0.9 cm 0.6 - 1.0 / 0.6 - 0.9 cm LV Relative Wall Thickness 0.5 LVOT Diameter 2.3 cm LV Diastolic Volume MOD BP 108.2 cm??? 67 - 155 / 56 - 104 cm??? LV Systolic Volume MOD BP 47.5 cm??? 22 - 58 / 19 - 49 cm??? LV Ejection Fraction MOD BP 56.1 % >= 55 % LV Cardiac Index MOD BP 2019.4 cm???/min???m??? LV Diastolic Volume MOD 4C 106.1 cm??? LV Systolic Volume MOD 4C 45.6 cm??? LV Ejection Fraction MOD 4C 57.0 % LV Cardiac Index MOD 4C 2012.7 cm???/min???m??? LV Diastolic Length 4C 9.1 cm LV Systolic Length 4C 7.5 cm LV Diastolic Volume MOD 2C 106.9 cm??? LV Systolic Volume MOD 2C 48.2 cm??? LV Ejection Fraction MOD 2C 55.0 % LV Cardiac Index MOD 2C 1953.1 cm???/min???m??? LV Diastolic Length 2C 9.4 cm LV Systolic Length 2C 7.7 cm LA Volume 44.0 cm??? 18 - 58 / 22 - 52 cm??? LA Volume Index 18.3 cm???/m??? 16 - 28 cm???/m??? Ascending Aorta Diameter 3.2 cm DOPPLER AV Peak Velocity 131.5 cm/s AV Peak Gradient 6.9 mmHg AV Mean Velocity 101.1 cm/s AV Mean Gradient 4.3 mmHg AV Velocity Time Integral 25.4 cm LVOT Peak Velocity 110.6 cm/s LVOT Peak Gradient 4.9 mmHg LVOT Velocity Time Integral 20.5 cm LVOT Stroke Volume 83.5 cm??? LVOT Stroke Volume Index 36.2 ml/m??? LVOT Cardiac Index 2773.8 cm???/min???m??? AV Area Cont Eq vti 3.3 cm??? AV Area Cont Eq pk 3.4 cm??? MV Area PHT 4.2 cm??? Mitral E Point Velocity 55.6 cm/s Mitral A Point Velocity 73.5 cm/s Mitral E to A Ratio 0.8 MV Deceleration Time 179.1 ms PV Peak Velocity 98.2 cm/s PV Peak Gradient 3.9 mmHg FINDINGS Left Ventricle Left ventricular ejection fraction is estimated at 55 %. Left ventricular cavity size normal. Left ventricular wall thickness normal. No obvious regional wall motion abnormalities. Right Ventricle Normal right ventricular size and function. Unable to estimate the right ventricular systolic pressure. Right Atrium Normal right atrial size. Left Atrium Normal left atrial size. Mitral Valve Structurally normal mitral valve. No mitral stenosis, regurgitation or prolapse. Aortic Valve Aortic valve not well visualized. No aortic valve stenosis or regurgitation. Tricuspid Valve Structurally normal tricuspid valve. No tricuspid stenosis. No tricuspid regurgitation. Pulmonic Valve Pulmonic valve not well visualized. No pulmonic stenosis. No pulmonic regurgitation. Pericardium No pericardial effusion. Aorta Normal size aortic root and proximal ascending aorta. CONCLUSIONS Normal LV size and systolic function. No significant abnormality on the Doppler exam. No pericardial effusion. Previewed by: Dr. Marquise Fierro MD (Electronically Signed) Final Date: 05 August 2024 11:25
--- NOTE | 2024-08-05 11:51 | CA ---
Exercise Stress Test Report Name: Pj Sanchez Exam Date: 08/05/2024 09:22 Exam Location: [facility] Ht (in): 71 Wt (lb): 248 BSA: 2.31 Ordering Phys: Khloe Olivarez MD Referring Phys: KHLOE OLIVAREZ Technologist: JAMES DIEGO Age: 53 Gender: M : 1970 Procedure CPT: Indications: R07.9 CHEST PAIN ICD-10 Codes: Patient History: Medications: COZAR, PERCOSET, ATORVASTATIN, PROSAC, METOPROLOL, TRULICITY Meds past 24 hrs: Pretest Chest Pain: STRESS TEST Esau Protocol Exercise Duration (min:sec): 07:[address] Depressions (mm): Angina Score: Gamez Score: Resting HR (bpm): 82 Peak HR (bpm): 212 Resting BP (mmHg): 127 / 80 Peak BP (mmHg): 177 / 81 MPHR: 168 Target HR: 143 % MPHR: 126 METS: 9.5 Total Dose: Peak Dose: Atropine: Double Product: 60080 BP Response: Stress Termination: TARGET HR REACHED/MAX EXERTION Stress Symptoms: DIFFICULTY IN BREATHING Stress Summary: ECG ANALYSIS Resting ECG: Stress ECG: CONCLUSIONS Baseline EKG revealed normal sinus rhythm without significant ST-T changes. Patient walked on a standard Esau protocol for a total duration of 7 minutes 24 seconds. As he exercised at about peak exercise, he went into a supraventricular tachycardia at nearly 200 bpm associated with shortness of breath. Subsequently he converted to sinus rhythm and demonstrated inferior lateral significant ST segment depression suggestive of ischemia. By EKG criteria this is a positive stress test suggestive of ischemia at moderate level of exercise with paroxysmal SVT during/at peak exercise. Details were discussed with the patient and he was advised to be hospitalized because of abnormal stress test and paroxysmal SVT and will undergo coronary angiogram tomorrow. I discussed with the patient in detail evaluated him and a detailed note will be dictated by nurse practitioner. Dr. Marquise Fierro MD (Electronically Signed) Final Date: 05 August 2024 11:51
== END | disposition home or self-care (01) ==
LOC: RADECHMAIN 08:37
PROVIDERS: ATTEND Family Medicine
DX: R07.9 Chest pain, unspecified (principal); Z86.73 Personal history of transient ischemic attack (TIA), and cerebral infarction without residual deficits
CPT/HCPCS: 93017; 93306

== ENCOUNTER → 2024-08-11 | Outpatient (CLI) | payer BC ==
--- NOTE | 2024-08-12 07:08 | US ---
EXAMINATION TYPE: US scrotum with doppler. 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 FINDINGS: EXAM MEASUREMENTS: TESTICLES: Right Testicle: 3.6 x 2.7 x 1.9 cm Left Testicle: 3.6 x 2.7 x 2.0 cm EPIDIDYMIS HEAD: Right Epididymis: 1.7 cm - 2.6 x 3.8 x 1.8cm anechoic cyst Left Epididymis: 1.2 cm Doppler performed to assess for testicular vascularity; good bilateral color flow and spectral wavefo merissa are seen. There is no evidence of testicular torsion. Presence of hydroceles: left Presence of varicoceles: no IMPRESSION: 1. No evidence for acute process. 2. No evidence for intratesticular mass. 3. Appropriate arterial and venous spectral waveforms to the testes. 4. Trace left hydrocele. 5. Right epididymal head cyst measuring up to 3.8 cm. [facility], , 08/12/2024 7:06 AM
== END | disposition home or self-care (01) ==
LOC: RADUSWWP 15:30
PROVIDERS: ATTEND Family Medicine
DX: N44.2 Benign cyst of testis (principal); N43.3 Hydrocele, unspecified; N50.3 Cyst of epididymis
CPT/HCPCS: 76870; 93975

== ENCOUNTER → 2024-08-30 | Outpatient (CLI) | payer BC ==
--- NOTE | 2024-08-30 17:29 | XR ---
EXAMINATION TYPE: XR knee complete RT DATE OF EXAM: 08/30/2024 4:52 PM COMPARISON: None CLINICAL INDICATION: Male, 53 years old with history of knee pain without injury TECHNIQUE: 3 views FINDINGS: There is mild marginal spurring at both medial and patellofemoral compartments. Extensor mechanism ap pears intact. No sizable knee joint effusion. No acute fracture, subluxation, dislocation seen. IMPRESSION: Early degenerative spurring in the medial and patellofemoral compartments. No acute osseous abnormali ty seen. [facility], Workstation: [facility], 08/30/2024 5:27 PM
== END | disposition home or self-care (01) ==
LOC: RADXRMAIN 16:37
PROVIDERS: ATTEND Family Medicine
DX: M22.2X1 Patellofemoral disorders, right knee (principal)